=== PATIENT | male | born 1995 | race Caucasian/White ===

== ENCOUNTER 2020-02-05 19:55 | Emergency (ER) | payer BC, SELFPAY ==
[2020-02-05 19:57] VITALS: BP 140/86; PULSE 90; RESP 18; TEMP 36.3; O2SAT 99; BMI 37.3
[2020-02-05] MEDS: Diphth,Pertuss(Acell),Tet Vac 0.5 ML Vial IM (20:14)
[2020-02-05] MEDS: Lidocaine 1% (20 ml mdv) 20 ML Vial INFILT (20:16)
--- NOTE | 2020-02-05 20:28 | ED.VIS.GEN ---
History of Present Illness Chief Complaint: Laceration Informant: Patient Narrative: 24-year-old male was cleaning a deer he was in his knife when he sustained a left index finger laceration. He is right-handed. Unknown last tetanus. Past Medical History - Allergies and Home Meds Allergies/Adverse Reactions: Allergies No Known Allergies Allergy (Verified 02/05/20 19:58) Primary Care Physician: NOT,DEFINED [Primary Care Provider] - Past Medical History: - - Noncontributory Surgical History: noncontributory Smoking Status: Never smoker Drugs: None Review of Systems General: Denies: Chills, Fever, Sweats Eyes: Denies: Visual changes - bilaterally, Diplopia ENT: Denies: Rhinorrhea, Sore throat Cardiovascular: Denies: Chest pain, Palpitations Respiratory: Denies: Dyspnea, Cough, Dyspnea on exertion Gastrointestinal: Denies: Abdominal pain, Nausea, Vomiting, Diarrhea, Melena, Hematochezia Genitourinary: Denies: Dysuria, Hematuria, Frequency Musculoskeletal: Denies: Back pain, Extremity Pain Skin: Reports: Wounds. Denies: Rash Neurological: Denies: Headache, Weakness, Numbness Physical Exam Vital Signs/Narrative: Vital Signs Temp Pulse Resp BP Pulse Ox 02/05/20 19:57 97.3 F L 90 18 140/86 H 99 Inital Vital Signs reviewed: Yes General: Well nourished, Well developed, No Acute Distress Head: Normocephalic, Atraumatic Eyes: Perrl, EOMI ENT: Moist mucous membranes, No rhinorrhea Neck: Supple, No JVD Cardiovascular: Regular rate, Regular rhythm, No murmurs Respiratory: No distress, CTA bilaterally, Chest nontender Abdomen: Soft, Nontender, Nondistended, Normal bowel sounds Extremities: Nontender, No edema Skin: Normal color, No rash, Trauma - 2 cm linear laceration over the lateral aspect of the left index finger. Wound is clean. There is Steri-Strips in place. Neurovascular intact Neurological: Alert, Oriented x3, Cranial nerves II-XII grossly intact, Normal Strength, Normal Sensation Psychological: Normal affect, Normal Mood Diagnostic/Tx/Re-eval - Medical Decision Making The wound was locally anesthetized using 1% lidocaine injected into the proximal aspect of the laceration and in essence resulting in a digital block of the lateral finger. The wound was washed with Shur-Clens and explored. It is to the subcutaneous tissue but no tendon vein artery or nerve visualized. Once adequate anesthesia was achieved 3 simple interrupted 4-0 Ethilon sutures was placed without difficulty. Wound care discussed with patient. Stitches will need to be removed in 7 to 10 days. Tetanus is updated with Ben. ED Disposition - Plan for ED Patient: Disposition: Home or Assisted Living Diagnosis: Finger laceration Instructions: ED Laceration, Hand: All Closures Additional Instructions: Stitches do need to be removed in 7 to 10 days. Keep the wound clean and dry. Antibiotic ointment once a day.
[2020-02-05 20:42] VITALS: RESP 16
== END 2020-02-05 20:47 | disposition home or self-care (01) ==
LOC: ED 20:47
PROVIDERS: Emergency Provider Emergency Medicine
DX: S61.211A Laceration without foreign body of left index finger without damage to nail, initial encounter (principal); W26.0XXA Contact with knife, initial encounter; Z23 Encounter for immunization
CPT/HCPCS: 12001; 90471; 90715; 99284

== ENCOUNTER → 2020-02-20 09:52 | Outpatient (CLI) | payer BC, SELFPAY ==
[2020-02-05 19:57] VITALS: BMI 37.3
== END ==
PROVIDERS: PCP Family Medicine; Referring Provider Family Medicine; Visit Provider Family Medicine
DX: Z20.828 Contact with and (suspected) exposure to other viral communicable diseases (principal)
CPT/HCPCS: 87635; U0003